=== PATIENT | female | born 1960 | race Asian ===

== ENCOUNTER → 2017-06-20 | Outpatient (CLI) | payer OTHER ==
--- NOTE | ~2017-06-20 | MY29 ---
[facility] A Service of [facility] [place] RADIOLOGY TEXT RESULTS PATIENT: LENCHO COOPRE LOCATION: [facility] : 58 UNIT #: [id number] AGE: [address]: KELLEN ADAN APRN SEX: F ORDER DR: [id number] [facility] [address] [place], [place] [address] [id number] O MR#: [id number] Acc #: [id number] NAME: LENCHO COOPER : 1960 SEX: F STUDY DATE/TIME: 06/20/2017 8:11 UNIT: [facility] ROOM: STUDY DESCRIPTION: MY [facility] SCREENING W/ CAD BILAT Attending Physician: Kerwin Adan M.D. Referring Physician: Kerwin Adan M.D. Ordering Physician: Kerwin Adan M.D. Primary Care Physician: Kerwin Adan M.D. MEDICAL IMAGING REPORT This report is preliminary unless electronic signature is present EXAM Digital screening mammogram, 06/20/2017, [facility]. HISTORY 57-year-old woman; no risk elevation. Annual screening. COMPARISON 04/27/2012, 08/28/2013, 06/24/2015. FINDINGS Digital imaging of each breast was completed, utilizing screening protocol. Review includes FDA-approved device. Breast parenchyma is moderately dense with combination of fibroglandular parenchyma and mild fibronodularity. Nodularity is less conspicuous, when compared to the 2015 exam. There are no suspicious mass characteristics. I see no interval occurring microcalcifications and no suspicious architectural deformity. IMPRESSION Benign mammogram. Annual screening recommended. Patients over the age of 40 are entered into a reminder system with target due date for the next mammogram. A result letter will also be sent to the patient. BIRADS: 2 Benign finding. Dictated by... Stvee Murphy M.D. THIS IS AN ELECTRONICALLY VERIFIED REPORT [facility] A Service of [facility] RADIOLOGY TEXT RESULTS PATIENT: LENCHO COOPER LOCATION: [facility] : 58 UNIT #: [id number] AGE: [address]: KELLEN ADAN APRN SEX: F ORDER DR: Steve Murphy M.D. at 06/20/2017 1:48 PM Nicolette TD: 06/20/2017 13:03 JOB #: [id number] MEDICAL IMAGING REPORT Page 1 of 1 COPY
== END | disposition home or self-care (01) ==
LOC: CWCC 07:43
DX: Z12.31 Encounter for screening mammogram for malignant neoplasm of breast (principal)
CPT/HCPCS: G0202